=== PATIENT | female | born 2005 | race Caucasian/White ===

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

== ENCOUNTER 2023-11-16 14:41 | Outpatient (CLI) | payer OTHER ==
[2023-11-16 14:58] LABS: BASOPHILS % (AUTO) 0.4 %; EOSINOPHILS # (AUTO) 0.1 10^3/uL (0.0-0.7); EOSINOPHILS % (AUTO) 1.8 %; HCT - HEMATOCRIT 41.4 % (37.0-47.0); HGB - HEMOGLOBIN 14.1 g/dL (12.0-16.0); LYMPHOCYTES # (AUTO) 2.3 10^3/uL (1.5-3.5); LYMPHOCYTES % (AUTO) 41.2 %; MEAN CORPUSCULAR HEMOGLOBIN 31.8 pg (27.0-31.0); MEAN CORPUSCULAR HGB CONC 34.1 g/dL (32.0-36.0); MEAN CORPUSCULAR VOLUME 93.5 fL (81.0-99.0); MEAN PLATELET VOLUME 8.4 fL (7.9-10.8); MONOCYTES # (AUTO) 0.7 10^3/uL (0.0-1.0); MONOCYTES % (AUTO) 12.1 %; NEUTROPHILS # (AUTO) 2.5 10^3/uL (1.5-6.6); NEUTROPHILS % (AUTO) 44.3 %; PLT - PLATELET COUNT 208 10^3/uL (130-450); RED BLOOD COUNT 4.43 10^6/uL (4.20-5.40); RED CELL DISTRIBUTION WIDTH 11.9 % (12.0-15.0); WHITE BLOOD COUNT 5.6 x10^3/uL (4.8-10.8)
== END 2023-11-16 14:42 | disposition home or self-care (01) ==
LOC: LAB 14:41
PROVIDERS: ATTEND Obstetrics & Gynecology
DX: Z01.812 Encounter for preprocedural laboratory examination (principal); N89.6 Tight hymenal ring
CPT/HCPCS: 36415; 85025

== ENCOUNTER 2023-11-22 07:30 | Day surgery (SDC) | payer OTHER ==
[2023-11-22 07:49] LABS: HCG UR QUAL NEGATIVE
[2023-11-22] MEDS: LACTATED RINGERS 1,000 ML IV ONE ×2 (07:56→09:38)
--- NOTE | 2023-11-22 08:14 | ANESTHESIA ---
Pre-Anesthesia VS, & Labs - Diagnosis tight hymenal ring - Procedure EUA, hymenectomy Vital Signs: Temp Pulse Resp BP Pulse Ox O2 Flow Rate 36.5 C 74 17 116/64 99 11/22/23 07:51 11/22/23 07:51 11/22/23 07:51 11/22/23 07:51 11/22/23 07:51 Height: 5 ft 6 in Weight (kg): 73 kg Body Mass Index: 25.9 BMI Classification: Overweight - NPO >8 hours - Is Patient ?: No Home Medications and Allergies Home Medications: Ambulatory Orders Fluoxetine HCl 60 mg PO DAILY 11/15/23 buPROPion [Wellbutrin Xl] 150 mg PO DAILY 11/15/23 Fluoxetine HCl 60 mg PO DAILY 11/15/23 buPROPion [Wellbutrin Xl] 150 mg PO DAILY 11/15/23 Allergies/Adverse Reactions: Allergies Allergy/AdvReac Type Severity Reaction Status Date / Time latex Allergy Rash Verified 11/15/23 09:39 Anes History & Medical History - Anesthetic History Anesthesia Complications: reports: No previous complications Family history of Anesthesia Complications: Denies Family history of Malignant Hyperthermia: Denies - Medical History Cardiovascular: reports: None Pulmonary: reports: Asthma Gastrointestinal: reports: None Urinary: reports: None Musculoskeletal: reports: None Endocrine/Autoimmune: reports: None Skin: reports: None Smoking Status: Never smoker Psychosocial: reports: Depression, Anxiety History of Cancer?: No Exam General: Alert, Oriented x3, Cooperative Dental: WNL Mouth Openin Fingerbreadth Neck Mobility: Normal Mallampati classification: I Thyromental Distance: 4-6 cm Respiratory: Lungs clear Cardiovascular: Regular rate Plan Anesthesia Type: General, Total IV Consent for Procedure(s) Verified and Reviewed: Yes Code Status: Attempt Resuscitation ASA classification: 2-Mild systemic disease Is this case an emergency?: No
[2023-11-22] MEDS: LIDOCAINE 1%-EPI 1:100000 20 ML MDV SUBQ ONE ×2 (08:57)
[2023-11-22] MEDS ORDERED: SCOPOLAMINE PATCH TOP SCH (09:00)
[2023-11-22] MEDS: BUPIVACAINE 0.25% PF 30 ML VIAL SUBQ ONE ×2 (09:07)
--- NOTE | 2023-11-22 09:39 | OPERATIVE REPORT ---
Operative Report - General Procedure Date: 11/22/23 Planned Procedure: Hymenectomy Pre-Op Diagnosis: Tight hymenal ring Procedure Performed: Hymenectomy Post Op Diagnosis: Tight hymenal ring - Procedure Note Primary Surgeon: Ervin Montesinos MD Secondary Surgeon: NASIR Damico Anesthesia Provider: Maria Del Rosario Morris CRNA Anesthesia Technique: MAC Pathology: None IV Fluids (mL): 850 Estimated Blood Loss (mL): 10 Urine Output (mL): 0 (Voided prior to procedure) Complications: None - Other Other Information/Narrative: After consent was confirmed, patient was taken to the operating room and placed in dorsolithotomy position. She was prepped and draped in usual sterile fashion. IV anesthesia was obtained with good pain control. Timeout was performed. Exam anesthesia showed a tight hymenal ring with a small, subcentimeter introital opening. This was injected with a mixture of Marcaine and lidocaine with epinephrine and injected at 2:00, 5:00, 7:00, and 10:00. The hymenal ring was then incised in these areas and opened to the level allowing 2 finger breaths to pass through. The excess hymenal skin was then resected. The vaginal mucosal was closed with a running suture of 3-0 Vicryl with 1 suture on each side to prevent any formation of a ring. First suture on the left side felt too tight, so this was cut and removed and resewn after removing a small amount of additional tissue. Sponge and needle counts were correct x 2 and the patient was taken to the PACU in good condition.
[2023-11-22 09:58] VITALS: O2SAT 100
[2023-11-22 10:58] VITALS: BP 98/60
--- NOTE | 2023-11-22 12:52 | ANESTHESIA POST OP EVALUATION ---
Anesthesia Post Eval - Post Anesthesia Eval Vitals: Last Vital Signs Temp 36.8 C 11/22/23 10:38 Pulse 70 11/22/23 10:38 Resp 15 11/22/23 10:38 BP 98/60 11/22/23 10:38 Pulse Ox 100 11/22/23 10:38 O2 Flow Rate CV Function Including HR & BP: Stable Pain Control: Satisfactory Nausea & Vomiting: Negative Mental Status: Baseline Respiratory Status: Airway Patent Hydration Status: Satisfactory Anesthesia Complications: None
== END 2023-11-22 07:31 | disposition home or self-care (01) ==
LOC: OR 07:30
PROVIDERS: ATTEND Obstetrics & Gynecology
DX: N89.6 Tight hymenal ring (principal); F41.8 Other specified anxiety disorders
CPT/HCPCS: 81025